=== PATIENT | male | born 1995 | race Caucasian/White ===

== ENCOUNTER 2025-01-13 22:46 | Emergency (ER) | payer OTHER, SELFPAY ==
[2025-01-13 22:55] VITALS: BP 165/104; PULSE 77; RESP 16; TEMP 36.5; O2SAT 100; BMI 46.1
--- NOTE | 2025-01-13 23:00 | DI.RAD.S_ITS ---
PROCEDURE: XR CHEST 1V INDICATIONS: chest pain TECHNIQUE: One view of the chest was acquired. COMPARISON: None. FINDINGS: Surgical changes and devices: None. Lungs and pleura: Lungs are clear. No pleural effusions or pneumothorax. Mediastinum: Mediastinal contours appear normal. Heart size is normal. Bones and chest wall: No suspicious bony lesions. Overlying soft tissues appear unremarkable. IMPRESSION: No acute cardiopulmonary abnormality is seen. Dictated by: Mitchell Grajeda M.D. on 01/13/2025 at 23:32 Approved by: Mitchell Grajeda M.D. on 01/13/2025 at 23:32
--- NOTE | 2025-01-13 23:07 | EKG_ITS ---
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
[2025-01-13 23:20] LABS: Add Manual Diff / Slide Review NO; Basophils Absolute Auto 100 /uL (0-100); Basophils Percent Auto 1.3 % (0-2); Eosinophils Absolute Auto 100 /uL (0-450); Hematocrit 42.9 % (41-53); Hemoglobin 14.2 g/dL (13.5-17.5); Lymphocytes Absolute Auto 3500 /uL (1100-4500); Mean Corpuscular Hemoglobin 27.4 PG (26-34); Monocytes Absolute Auto 700 /uL (0-900); Monocytes Percent Auto 7.1 % (3-14); Neutrophils Absolute Auto 5400 /uL (1500-7000); Neutrophils Percent Auto 54.6 % (50-75); Platelet Count 362 X10^3/uL (150-400); Red Blood Cell Count 5.16 X10^6/uL (4.5-5.9); Red Cell Distribution Width 14.1 % (11.6-14.8); White Blood Cell Count 9.8 X10^3/uL (4.5-11.0)
[2025-01-13 23:32] LABS: Alanine Aminotransferase 33 IU/L (<50); Albumin 4.3 g/dL (3.5-5.0); Albumin Globulin Ratio 1.2 (1.0-2.8); Alkaline Phosphatase 44 U/L (38-126); Aspartate Aminotransferase 31 IU/L (17-59); BUN Creatinine Ratio 14.4 (6-22); Bilirubin Total 0.4 mg/dL (0.2-1.3); Blood Urea Nitrogen 14 mg/dL (9-20); Calcium 8.9 mg/dL (8.4-10.2); Carbon Dioxide 27 mmol/L (22-32); Chloride 105 mmol/L (98-107); Creatine Kinase 127 U/L (55-170); Estimated Glomerular Filt Rate > 60 mL/min (>60); Globulin 3.6 g/dL (1.7-4.1); Glucose 95 mg/dL (70-100); HEMOLYSIS 20 (0-50); Lipase 83 U/L (23-300); Potassium 3.9 mmol/L (3.4-5.1); Sodium 140 mmol/L (137-145); Total Protein 7.9 g/dL (6.3-8.2)
[2025-01-13 23:34] LABS: INR 1.1 (0.9-1.3)
[2025-01-13 23:36] LABS: PTT Partial Thromboplastin Tim 38 SECONDS (25.1-36.5)
[2025-01-13 23:43] LABS: NT-proBNP (BNP-Adult 18+) < 20 pg/mL (<125); Troponin I < 0.012 ng/mL (0.01-0.034)
--- NOTE | 2025-01-14 00:35 | ED_ITS ---
HPI - Arrhythmia/Palpitations General Chief Complaint: Arrhythmia/Palpitations Stated Complaint: heart flutters Time Seen by Provider: 01/14/25 00:35 Source: patient Mode of arrival: Ambulatory History of Present Illness HPI narrative: Patient is a 29-year-old male without any significant past medical history comes into the ED from home for evaluation of palpitations. Patient states that earlier today was feeling heart fluttering while sitting down at lunch states felt like his heart was skipping a beat but denied any actual chest pain, he denies any difficulty breathing. States it has been intermittent in nature over the last 6 months but today it lasted longer than usual therefore decided come into the ED for further evaluation treatment. Patient denies any other symptoms such as headache visual disturbances chest pain shortness of breath fever chills nausea vomiting abdominal pain or any other GI/ symptoms time. Related Data Allergies Allergy/AdvReac Type Severity Reaction Status Date / Time No Known Drug Allergies Allergy Verified 01/13/25 22:55 Review of Systems Review of Systems Narrative: General: Denies fever, chills, weight loss HEENT: Denies headache, eye drainage, eye irritation, head trauma, sore throat, voice change Cardiovascular: Positive palpitations, Denies any chest pain, shortness of breath, tachycardia Respiratory: Denies any shortness of breath, cough, wheeze, stridor GI/: Denies any abdominal pain, nausea, vomiting, diarrhea, bright red blood per rectum, melanotic stools, urinary frequency, urinary retention, dysuria, hematuria MSK: Denies any joint pain, muscle pains, swelling Skin: Denies any rashes, lesions, discoloration Neuro: Denies any headache, lightheadedness, dizziness, fainting, weakness Psych: Denies SI/HI Patient History Social History Smoking Status: Never smoker Smoking Status: Never smoker Exam Narrative Exam Narrative: General: Cooperative, comfortable, well-developed, not in acute distress HEENT: Normocephalic, atraumatic, PERRLA, normal sclera, eyelids normal, Neck: Active full range of motion, atraumatic Chest: Normal to inspection, negative crepitus, no overlying erythema ecchymosis Respiratory: Normal respiratory effort, not in acute respiratory distress, clear to auscultation bilaterally negative cough, wheeze, tachypnea, rhonchi, rales Cardiology: Regular rate rhythm negative gallop, murmur, rubs GI/: Normal to inspection, soft, nonrigid, no tenderness to palpation, exam deferred MSK: Full range of active range of motion of all 4 extremities, atraumatic Skin: No rashes lesions noted Neuro: Alert awake oriented x3, moves all 4 extremities spontaneously, cranial nerves intact, able to answer all questions appropriately follows commands appropriately Psych: Cooperative, negative suicidal or homicidal ideations Initial Vital Signs Initial Vital Signs: Vital Signs Temperature 97.7 F 01/13/25 22:55 Pulse Rate 77 01/13/25 22:55 Respiratory Rate 16 01/13/25 22:55 Blood Pressure 165/104 H 01/13/25 22:55 Pulse Oximetry 100 01/13/25 22:55 Oxygen Delivery Method Room Air 01/13/25 22:55 Course Orders Ordered: ED Orders 01/13/25 23:00 XR chest 1V Stat EKG-12 Lead Stat 01/13/25 23:10 Complete Blood Count AUTO DIFF Stat Comprehensive Metabolic Panel Stat Lipase Stat Magnesium Stat NT-proBNP (BNP-Adult 18+) Stat Troponin & CK Cardiac Panel Stat 01/13/25 23:20 PTT Partial Thromboplastin Hernán Stat Prothrombin Time INR Stat Vital Signs Vital signs: Vital Signs - 8 hr 01/13/25 22:55 Temperature 97.7 F Pulse Rate 77 Respiratory Rate 16 Blood Pressure 165/104 H Pulse Oximetry 100 Oxygen Delivery Method Room Air MDM - Arrhythmia/Palpitations Differential Diagnosis Differential diagnosis: Likely palpitations, sinus tachycardia, artial fibrillation, artial flutter, ventricular premature beats, supraventricular tachycardia and other (Pneumonia, ACS, electrolyte abnormality) Lab Data 01/13/25 23:10 01/13/25 23:10 Labs: Lab Results 01/13/25 01/13/25 Range/Units 23:10 23:20 WBC 9.8 (4.5-11.0) X10^3/uL RBC 5.16 (4.5-5.9) X10^6/uL Hgb 14.2 (13.5-17.5) g/dL Hct 42.9 (41-53) % MCV 83.0 (80-100) fL MCH 27.4 (26-34) PG MCHC 33.0 (30-36) % RDW 14.1 (11.6-14.8) % Plt Count 362 (150-400) X10^3/uL Neut % (Auto) 54.6 (50-75) % Lymph % (Auto) 36.0 (25-40) % [place] % (Auto) 7.1 (3-14) % Eos % (Auto) 1.0 L (2-4) % Baso % (Auto) 1.3 (0-2) % Neut # (Auto) 5400 (6865-7125) /uL Lymph # (Auto) 3500 (6492-5276) /uL [place] # (Auto) 700 (0-900) /uL Eos # (Auto) 100 (0-450) /uL Baso # (Auto) 100 (0-100) /uL PT 12.0 (9.4-12.5) SECONDS INR 1.1 (0.9-1.3) APTT 38 H (25.1-36.5) SECONDS Sodium 140 (137-145) mmol/L Potassium 3.9 (3.4-5.1) mmol/L Chloride 105 (98-107) mmol/L Carbon Dioxide 27 (22-32) mmol/L BUN 14 (9-20) mg/dL Creatinine 0.97 (0.66-1.25) mg/dL Estimated GFR > 60 (>60) mL/min BUN/Creatinine Ratio 14.4 (6-22) Glucose 95 (70-100) mg/dL Calcium 8.9 (8.4-10.2) mg/dL Magnesium 2.0 (1.6-2.3) mg/dL Total Bilirubin 0.4 (0.2-1.3) mg/dL AST 31 (17-59) IU/L ALT 33 (<50) IU/L Alkaline Phosphatase 44 (38-126) U/L Total Creatine Kinase 127 (55-170) U/L Troponin I < 0.012 (0.01-0.034) ng/mL NT-Pro-B Natriuret Pep < 20 (<125) pg/mL Total Protein 7.9 (6.3-8.2) g/dL Albumin 4.3 (3.5-5.0) g/dL Globulin 3.6 (1.7-4.1) g/dL Albumin/Globulin Ratio 1.2 (1.0-2.8) Lipase 83 (23-300) U/L Imaging Data Chest x-ray: Radiologist's Impresson: [address] [address] XRay Report Signed Patient: Daniel Walker MR#: [id number] : 1995 Acct:[id number] Age/Sex: 29 / M Date of Service: 01/13/25 Loc: ED Accession Number: [id number] Procedure: XR chest 1V Ordering Provider: Eusebio Jeffers D.O. PROCEDURE: XR CHEST 1V INDICATIONS: chest pain TECHNIQUE: One view of the chest was acquired. COMPARISON: None. FINDINGS: Surgical changes and devices: None. Lungs and pleura: Lungs are clear. No pleural effusions or pneumothorax. Mediastinum: Mediastinal contours appear normal. Heart size is normal. Bones and chest wall: No suspicious bony lesions. Overlying soft tissues appear unremarkable. IMPRESSION: No acute cardiopulmonary abnormality is seen. ECG Data Interpretation: EKG interpreted ED physician, sinus 76 beats per minute normal axis QTC [address] changes no STEMI MDM Narrative Medical decision making narrative: Patient is a 29-year-old male without any significant past medical history presenting for palpitations started earlier today spontaneously however he states that this has been intermittent in nature for the past several months, states that he presented today due to the fact that it lasted longer than normal. He denies any actual chest pain shortness of breath, EKG nonischemic in nature, troponin negative lab work otherwise unremarkable. Patient with a heart score of 0, chest x-ray without any signs of acute cardiopulmonary abnormalities. Patient was instructed to follow up with primary care and Cardiology in outpatient setting, he verbalized understanding of being discharged home with outpatient follow up strict return precautions were given he verbalized understanding of this and agrees to being discharged home with outpatient follow up. Discharge Plan Departure Patient Disposition: Home Clinical Impression: Palpitations Instructions: DI for Palpitations Activity Restrictions/Additional Instructions: Please follow up with Cardiology and primary care Please read the discharge instructions sheet carefully and bring all papers to all doctor follow-up visits, as it may contain information that your doctor may want to see. Disease processes change and evolve, if your symptoms worsen or if you develop any new symptoms that are concerning to you please return for evaluation. Your evaluation today does not show any evidence of any life- threatening/serious illnesses requiring admission to the hospital or surgery. Please follow-up with your doctor for re-evaluation in approximately 1 day. Seek immediate medical attention for any worrisome symptoms. *If you do not have a primary care provider please contact the [facility] Resource line at [phone]. They will ask some questions about your medical history and help get you set up with a doctor in the community. Referrals: Fernie Jones MD [Physician] - 3-5 days Stand Alone Forms: Patient Portal/API/Survey
[2025-01-14 00:59] VITALS: BP 150/81; PULSE 87; RESP 18; O2SAT 95
== END 2025-01-14 00:59 | disposition home or self-care (01) ==
PROVIDERS: Emergency Provider Student in an Organized Health Care Education/Training Program
DX: R00.2 Palpitations (principal); R07.9 Chest pain, unspecified
CPT/HCPCS: 36415; 71045; 80053; 82550; 83690; 83735; 83880; 84484; 85025; 85610; 85730; 93005; 99283; 99284

== ENCOUNTER → 2025-10-30 06:51 | Outpatient (CLI) | payer OTHER, SELFPAY ==
--- NOTE | 2025-10-30 06:52 | DI.ECHO.S_ITS ---
[facility]+ [facility] : : [address] : : [place] : : [id number] : : Phone: [phone] Echocardiogram Report + + :Name: ERYN HALL Study Date: 10/30/2025 Height: 75 in : :[facility] ReadingLocation: Weight: 350 lb : : Gender: Male BSA: 2.8 m2 : :: 1995 Age: 30 yrs BP: 158/90 mmHg: :Reason For Study: Palpatations : :Ordering Physician: CHRISTIAN, : :BEVERLY Forte Performed By: Justino Ratliff : :Referring: BEVERLY GONZALES : + + Interpretation Summary Left ventricular wall thickness is borderline increased. The ejection fraction is estimated to be 55-60%. Normal diastolic function. The right ventricle is normal in size and function. No valvular abnormalities. Pulmonary artery pressures cannot be estimated because of the lack of a measurable TR jet velocity but the IVC suggests a CVP of around 3 mmHg. Procedure: A two-dimensional transthoracic echocardiogram with color flow and Doppler was performed. The study quality was technically adequate. There is no prior echocardiogram noted for this patient. The patient was in normal sinus rhythm during the exam. Left Ventricle: The left ventricle is normal in size. Left ventricular wall thickness is borderline increased. Left ventricular systolic function is normal. The ejection fraction is estimated to be 55-60%. There are no focal wall motion abnormalities. Normal diastolic function. Right Ventricle: The right ventricle is normal in size and function. Atria: The left atrial size is normal. Right atrial size is normal. There is no Doppler evidence for an atrial septal defect. Mitral Valve: The mitral valve leaflets appear to open well. There is no evidence of mitral valve prolapse. There is no mitral valve stenosis. There is no mitral regurgitation noted. Aortic Valve: The aortic valve is trileaflet. The aortic valve opens well. There is no aortic valve stenosis. No aortic regurgitation is present. Tricuspid Valve: The tricuspid valve leaflets are thin and pliable. There is a trace or physiologic amount of tricuspid regurgitation. Pulmonary artery pressures cannot be estimated because of the lack of a measurable TR jet velocity but the IVC suggests a CVP of around 3 mmHg. Pulmonic Valve: The pulmonic valve is not well seen, but is grossly normal. There is a trace or physiologic amount of pulmonic regurgitation. Great Vessels: The aortic root is normal size. The ascending aorta is normal in size. The aortic arch could not be visualized. The pulmonary artery is normal size. The IVC is of normal diameter and collapses greater than 50% with a sniff. This suggests a low right atrial pressure of 3 mm Hg. Pericardium/ Pleura There is no pericardial effusion. MMode/2D Measurements & Calculations LVIDd: 6.4 cm LVOT diam: 2.2 cm LVIDs: 3.6 cm Ao root diam: 3.1 cm FS: 42.9 % asc Aorta Diam: 3.2 cm IVSd: 1.1 cm LVPWd: 1.1 cm LV fountain. diameter/BSA (cm/m^2): 2.3 LV sys. diameter/BSA (cm/m^2): 1.3 LA A2 area: 22.1 cm2 IVC diam: 2.0 cm LA A4 area: 26.0 cm2 LA length (vol): 6.1 cm LA vol: 79.6 ml LA vol index: 28.6 ml/m2 RVD1 (basal): 3.9 cm RVD2 (mid): 3.4 cm TAPSE: 2.5 cm Doppler Measurements & Calculations Ao V2 max: 126.6 cm/sec LVOT Max Octavio: 123.4 cm/sec Ao V2 mean: 100.6 cm/sec LV V1 max P.1 mmHg Ao max P.4 mmHg LV V1 VTI: 24.8 cm Ao mean P.3 mmHg ESTELA(I,D): 3.8 cm2 Ao V2 VTI: 24.4 cm ESTELA(V,D): 3.7 cm2 sev ratio: 1.0 ESTELA indexed to BSA (cm^2/m^2): 1.4 MV E max octavio: 91.0 cm/sec PA V2 max: 108.4 cm/sec MV A max octavio: 75.7 cm/sec PA V2 mean: 81.6 cm/sec MV E/A: 1.2 PA mean P.9 mmHg Med Peak E' Octavio: 10.2 cm/sec PA pr(Accel): 19.9 mmHg E/E' med: 9.0 Lat Peak E' Octavio: 14.0 cm/sec E/E' lat: 6.5 E/e' average: 7.7 MV dec time: 0.16 sec SV(LVOT): 93.1 ml Reading Physician:12:43 PM
--- NOTE | 2025-10-30 13:15 | DI.NM.S_ITS ---
DATE OF SERVICE: 10/30/2025 EXERCISE STRESS TEST INDICATIONS: Palpitations, SVT, hypertension, hyperlipidemia. CARDIAC STRESS: The patient underwent exercise stress test under the supervision of an attending staff. The patient walked on Pantera protocol for 8 minutes and 11 seconds, achieved 10.1 METS of workload, RONEL positive 39%, 93% target heart rate with maximum heart rate 176. Resting blood pressure 146/100 and peak blood pressure 182/86. Baseline rhythm sinus. During stress, no convincing ischemic changes seen. Artifact at peak exercise, but in immediate recovery, no obvious ischemic changes. No significant arrhythmias. No chest pain. The patient had knee discomfort. Normal recovery. CONCLUSION: Exercise stress test is negative for inducible ischemia. Diminished exercise tolerance. Normal hemodynamic response. No anginal symptoms. No significant arrhythmias. Overall, low-risk exercise stress test. Daniel Walker - GURJIT/javi/ONEL doc#: [id number]/job#: [id number] dd: 10/30/2025 13:00:00 dt: 10/30/2025 13:07:00 DICTATING /COPIES TO: Varun Reyes MD COPIES MNE: GRIFFIN;
== END ==
LOC: ECHO 06:51
PROVIDERS: PCP Family Medicine; Referring Provider Internal Medicine Cardiovascular Disease; Visit Provider Internal Medicine Cardiovascular Disease
DX: I47.10 Supraventricular tachycardia, unspecified (principal); R00.2 Palpitations; I10 Essential (primary) hypertension; E78.5 Hyperlipidemia, unspecified
CPT/HCPCS: 93017; 93306